=== PATIENT | female | born 1995 | race Caucasian/White ===

== ENCOUNTER 2017-08-12 20:34 | Emergency (ER) | payer BC ==
[~2017-08-12] VITALS: Ht 160 cm; Wt 63.5 kg
[~2017-08-12 20:34] MED LIST: AMOXIL500 MG PO; BACTRIM DS 8001 TA1 PO; KEFLEX500 MG PO; MACROBID100 M1 PO; MOTRIN800 MG PO; NKHM; PHENERGAN25 MG RC; PNV-TOTAL1 SGL PO; PRENATABS CBF1 TAB PO; PYRIDIUM200 M1 PO; ROXICET 325 MG/55 ML PO; VENLAFAXINE75 M1 PO; ZOFRAN ODT4 MG SL; ZOFRAN4 MG PO
[2017-08-12 21:02] LABS: BILIRUBIN NEGATIVE (NEGATIVE); BLOOD 1+ (NEGATIVE); CLARITY SL CLOUDY (CLEAR); COLOR YELLOW (YELLOW); GLUCOSE NEGATIVE (NEGATIVE); KETONE NEGATIVE (NEGATIVE); LEUKO ESTERASE 3+ (NEGATIVE); NITRITE NEGATIVE (NEGATIVE); PH 6.5 (5.0-9.0); SPECIFIC GRAVITY <= 1.005 (1.005-1.030)
[2017-08-12 21:15] LABS: EPITHELIAL CELLS 51-100; WBC 41-50 wbc/hpf (0-5)
[2017-08-12 21:16] LABS: BACTERIA 1+
[2017-08-12 21:28] LABS: BASO % 0.3 % (0.0-1.0); EOS % 0.4 % (1.0-4.0); HEMATOCRIT 41.2 % (37.0-47.0); HEMOGLOBIN 14.3 g/dl (12.0-16.0); LYMPH # 1.3 10*3/uL (1.3-4.4); LYMPH % 12.4 % (27.0-41.0); MEAN CELL VOLUME 95.2 fl (81.0-99.0); MEAN CORPUSCULAR HGB CONC 34.7 g/dl (33.0-37.0); MEAN PLATELET VOLUME 10.5 fl (9.6-12.3); MONO # 0.7 10*3/uL (0.1-1.0); MONO % 6.7 % (3.0-9.0); NEUT # 8.1 10*3/uL (2.3-7.9); PLATELET COUNT AUTOMATED 146 10*3/uL (130-400); RED BLOOD COUNT 4.33 10*6/uL (4.10-5.10); RED CELL DISTRI WIDTH 12.4 % (0-14.5); WHITE BLOOD COUNT 10.1 10*3/uL (4.8-10.8)
[2017-08-12 21:43] LABS: ALBUMIN 4.1 gm/dl (3.1-4.5); ALKALINE PHOSPHATASE 89 U/L (45-117); BUN 8 mg/dl (7-24); CHLORIDE 102 mmol/L (98-107); CREATININE 1.06 mg/dL (0.55-1.02); POTASSIUM 3.2 mmol/L (3.5-5.1); SGOT/AST 15 IU/L (3-35); SGPT/ALT 16 U/L (12-78); SODIUM 136 mmol/L (136-145); TOTAL PROTEIN 7.4 gm/dL (6.4-8.2)
[2017-08-12] MEDS ORDERED: CIPRO500 MG PO (23:27)
== END 2017-08-12 23:45 | disposition home or self-care (01) ==
LOC: ED 20:34
PROVIDERS: Physician Assistant
DX: N30.01 Acute cystitis with hematuria (principal); R50.9 Fever, unspecified; F17.200 Nicotine dependence, unspecified, uncomplicated; Z79.899 Other long term (current) drug therapy